=== PATIENT | female | born 1985 | race Caucasian/White ===

== ENCOUNTER 2018-09-10 16:33 | Emergency (ER) | payer BC ==
[2018-09-10 17:39] VITALS: BMI 24.7
[2018-09-10 17:42] VITALS: RESP 18
--- NOTE | 2018-09-10 18:19 | ED PDOC ---
Arrival/HPI - General Chief Complaint: Fever Time Seen by Provider: 09/10/18 16:42 Historian: Patient - History of Present Illness Narrative History of Present Illness (Text): 09/10/18 18:19 33 yo F w/ PMH of PE on xarelto c/o cough and fever x 5 days. Patient states that she has seen her pmd regarding the symptoms and was Rx cough medication and amoxicillin 875 mg BID x 7 days, she has taken it for the past 5 days so far. Patient admits to sick contacts - her son had pneumonia. Denies any SOB, CP, palpitations, headache, dizziness, N/V/D, rash, recent travel, smoking. PMD Vazquez Past Medical History - Infectious Disease Hx of Infectious Diseases: None - Cardiac Hx Cardiac Disorders: No - Pulmonary Hx Pulmonary Embolism: Yes - Neurological Hx Neurological Disorder: No - HEENT Hx HEENT Disorder: No - Renal Hx Renal Disorder: No - Endocrine/Metabolic Hx Endocrine Disorders: No - Hematological/Oncological Hx Blood Disorders: No - Integumentary Hx Dermatological Disorder: No - Musculoskeletal/Rheumatological Hx Musculoskeletal Disorders: No Hx Falls: No - Gastrointestinal Hx Gastrointestinal Disorders: No - Genitourinary/Gynecological Hx Genitourinary Disorders: No - Psychiatric Hx Psychophysiologic Disorder: No Hx Substance Use: No - Surgical History Hx Section: Yes (x1) - Anesthesia Hx Anesthesia: Yes Hx Anesthesia Reactions: No Hx Malignant Hyperthermia: No - Suicidal Assessment Feels Threatened In Home Enviroment: No Family/Social History Family/Social History: No Known Family HX Smoking Status: Never Smoked Hx Alcohol Use: Yes (occasional) Hx Substance Use: No Hx Substance Use Treatment: No Allergies/Home Meds Allergies/Adverse Reactions: Allergies No Known Allergies Allergy (Verified 04/22/12 09:03) Home Medications: Home Meds Medication Instructions Recorded Confirmed Rivaroxaban [Xarelto] 20 mg PO DAILY 09/10/18 09/10/18 Review of Systems - Review of Systems Constitutional: Fevers. absent: Fatigue Respiratory: Cough. absent: SOB, Sputum, Wheezing Cardiovascular: absent: Chest Pain, Palpitations Gastrointestinal: absent: Abdominal Pain, Diarrhea, Vomiting Musculoskeletal: absent: Arthralgias, Back Pain, Neck Pain Skin: absent: Rash, Pruritis, Skin Lesions Neurological: absent: Headache, Dizziness Physical Exam Vital Signs Temp Pulse Resp BP Pulse Ox 09/10/18 18:10 100.6 F H 09/10/18 17:42 100.6 F H 98 H 18 116/77 99 Temperature: Febrile Blood Pressure: Normal Pulse: Regular Respiratory Rate: Normal Appearance: Positive for: Well-Appearing, Non-Toxic, Comfortable Pain Distress: None Mental Status: Positive for: Alert and Oriented X 3 - Systems Exam Head: Present: Atraumatic, Normocephalic Pupils: Present: PERRL Extroacular Muscles: Present: EOMI Conjunctiva: Present: Normal Mouth: Present: Moist Mucous Membranes Pharnyx: Present: Normal. No: ERYTHEMA, EXUDATE Neck: Present: Normal Range of Motion. No: Meningeal Signs, Lymphadenopathy Respiratory/Chest: Present: Clear to Auscultation, Good Air Exchange. No: Respiratory Distress, Accessory Muscle Use Cardiovascular: Present: Regular Rate and Rhythm, Normal S1, S2. No: Murmurs Abdomen: No: Tenderness, Distention, Peritoneal Signs Back: Present: Normal Inspection Upper Extremity: Present: Normal Inspection. No: Cyanosis, Edema Lower Extremity: Present: Normal Inspection. No: Edema Neurological: Present: GCS=15, CN II-XII Intact, Speech Normal Skin: Present: Warm, Dry, Normal Color. No: Rashes Psychiatric: Present: Alert, Oriented x 3, Normal Insight, Normal Concentration Medical Decision Making ED Course and Treatment: 09/10/18 18:15 Plan : - CXR - Flu - Tylenol PO CXR : NAD, as read by ADRIANNA Flu : (-) On reevaluation, patient denies any CP or SOB. On exam, patient remains awake alert and oriented 3 in no acute distress, breathing easy and unlabored. Diagnostic results d/w the patient. Advised to follow up with primary care physician in 1-2 days without fail. Advised to continue current medication. Return to the emergency room at any time for any new or worsening symptoms. Patient states she fully agrees with and understands discharge instructions. States that she agrees with the plan and disposition. Verbalized and repeated discharge instructions and plan. I have given the patient opportunity to ask any additional questions. - RAD Interpretation Radiology Orders: 09/10/18 17:56 CHEST TWO VIEWS (PA/LAT) [RAD] Stat - Medication Orders Current Medication Orders: Discontinued Medications Acetaminophen (Tylenol 325mg Tab) 975 mg PO STAT STA Stop: 09/10/18 17:57 Last Admin: 09/10/18 18:10 Dose: 975 mg MAR Pain/Vitals Document 09/10/18 18:10 GMD (Rec: 09/10/18 18:10 GMD [id number]) Vitals Temperature (97.6 F-99.6 F) 100.6 F Temperature Source Oral - PA / ROAD REPAIRER / Resident Statement MD/DO has reviewed & agrees with the documentation as recorded. Disposition/Present on Arrival - Present on Arrival Any Indicators Present on Arrival: Yes History of DVT/PE: Yes History of Uncontrolled Diabetes: No Urinary Catheter: No History of Decub. Ulcer: No History Surgical Site Infection Following: None - Disposition Have Diagnosis and Disposition been Completed?: Yes Diagnosis: Cough, Fever Disposition: HOME/ ROUTINE Disposition Time: 19:00 Patient Plan: Discharge Condition: STABLE Discharge Instructions (ExitCare): Acute Bronchitis, Adult (DC), Cough, Adult ( DC), Fever, Adult (DC) Additional Instructions: Thank you for letting us take care of you today. You were treated for fever, cough, likely bronchitis. The emergency medical care you received today was directed at your acute symptoms. Continue taking current medications. It may take several days for your symptoms to resolve. Return to the Emergency Department if your symptoms worsen, do not improve, or if you have any other problems. Please contact your doctor in 2 days for re-evaluation and follow up. Bring any paperwork you were given at discharge with you along with any medications you are taking to your follow up visit. Our treatment cannot replace ongoing medical care by a primary care provider (PCP) outside of the emergency department. Thank you for allowing the [facility] team to be part of your care today. If you had an X-Ray : A Radiologist will review the ED reading if any change in treatment is needed we will contact you. Forms: [employer] (Tunisian), WORK NOTE
[2018-09-10 19:26] VITALS: BP 118/76; PULSE 81; TEMP 99.3; O2SAT 97
--- NOTE | 2018-09-11 08:34 | RAD ---
HISTORY: cough COMPARISON: Chest x-ray performed 08/27/17 TECHNIQUE: Chest PA and lateral FINDINGS: LUNGS: No focal consolidation. Please note that chest x-ray has limited sensitivity for the detection of pulmonary masses. PLEURA: No significant pleural effusion identified. No definite pneumothorax . CARDIOVASCULAR: The cardiomediastinal silhouette appears within normal limits of size. No atherosclerotic calcification present. OSSEOUS STRUCTURES: No acute osseous abnormality identified. VISUALIZED UPPER ABDOMEN: Unremarkable. OTHER FINDINGS: None. IMPRESSION: No acute findings.
== END 2018-09-10 19:28 | disposition home or self-care (01) ==
LOC: ED 16:33
DX: R50.9 Fever, unspecified (principal); R05 Cough

== ENCOUNTER 2018-11-20 12:44 | Emergency (ER) | payer BC, OTHER ==
[2018-11-20 12:50] VITALS: BMI 24.4
--- NOTE | 2018-11-20 13:15 | ED PDOC ---
Arrival/HPI - General Chief Complaint: Chest Pain Time Seen by Provider: 11/20/18 12:58 Historian: Patient - History of Present Illness Narrative History of Present Illness (Text): 11/20/18 13:15 A 33 year old female with no signifcant past medical history presents to the emergency department complaining of chest pain for the past 3 days. Patient reports experiencing associated shortness of breath, dry cough, and headache. Iggy rea she called Dr. Mercedes because her heart rate was abnormal to which she was urged to go to the emergency room. Patient notes she was told by her doctor to stop taking Xarelto because her ultrasound and CT images were negative. Patient reports to having sick contact with her children at home. Patient notes no recent travel. Patient denies any fever, chills, dizziness, or any other complaints. PMD: Dr. Merceeds Time/Duration: Other (3 days) Symptom Onset: Gradual Symptom Course: Unchanged Activities at Onset: Light Context: Home Past Medical History - Provider Review Nursing Documentation Reviewed: Yes - Infectious Disease Hx of Infectious Diseases: None - Cardiac Hx Cardiac Disorders: No - Pulmonary Hx Pulmonary Embolism: Yes - Neurological Hx Neurological Disorder: No - HEENT Hx HEENT Disorder: No - Renal Hx Renal Disorder: No - Endocrine/Metabolic Hx Endocrine Disorders: No - Hematological/Oncological Hx Blood Disorders: No - Integumentary Hx Dermatological Disorder: No - Musculoskeletal/Rheumatological Hx Musculoskeletal Disorders: No Hx Falls: No - Gastrointestinal Hx Gastrointestinal Disorders: No - Genitourinary/Gynecological Hx Genitourinary Disorders: No - Psychiatric Hx Psychophysiologic Disorder: No Hx Substance Use: No - Surgical History Hx Section: Yes (x1) - Anesthesia Hx Anesthesia: Yes Hx Anesthesia Reactions: No Hx Malignant Hyperthermia: No - Suicidal Assessment Feels Threatened In Home Enviroment: No Family/Social History - Physician Review Nursing Documentation Reviewed: Yes Family/Social History: No Known Family HX Smoking Status: Never Smoked Hx Alcohol Use: Yes (occasional) Hx Substance Use: No Hx Substance Use Treatment: No Allergies/Home Meds Allergies/Adverse Reactions: Allergies No Known Allergies Allergy (Verified 04/22/12 09:03) Home Medications: Home Meds Medication Instructions Recorded Confirmed Aspirin [Ecotrin] 81 mg PO DAILY 11/20/18 11/20/18 Review of Systems - Physician Review All systems were reviewed & negative as marked: Yes - Review of Systems Constitutional: absent: Fevers, Other (chills) Respiratory: SOB, Cough Neurological: absent: Headache, Dizziness Physical Exam Vital Signs Reviewed: Yes Vital Signs Temp Pulse Resp BP Pulse Ox 11/20/18 13:02 98.1 F 86 18 109/68 100 Temperature: Afebrile Blood Pressure: Normal Pulse: Regular Respiratory Rate: Normal Appearance: Positive for: Well-Appearing, Non-Toxic Mental Status: Positive for: Alert and Oriented X 3 - Systems Exam Head: Present: Atraumatic, Normocephalic Pupils: Present: PERRL Extroacular Muscles: Present: EOMI Conjunctiva: Present: Normal Respiratory/Chest: Present: Clear to Auscultation, Good Air Exchange. No: Res piratory Distress, Accessory Muscle Use Cardiovascular: Present: Regular Rate and Rhythm, Normal S1, S2. No: Murmurs Abdomen: No: Tenderness, Distention, Peritoneal Signs Back: Present: Normal Inspection Upper Extremity: Present: Normal Inspection. No: Cyanosis, Edema Lower Extremity: Present: Normal Inspection. No: Edema Neurological: Present: GCS=15, CN II-XII Intact, Speech Normal Skin: Present: Warm, Dry, Normal Color. No: Rashes Psychiatric: Present: Alert, Oriented x 3, Normal Insight, Normal Concentration Medical Decision Making ED Course and Treatment: 11/20/18 13:17 Impression: 33 year old female presents to the emergency department complaining of chest pain Plan: -- EKG -- Labs -- CBC -- Urinalysis -- Reassess and disposition Prior Visits: Notes and results from previous visits were reviewed. Patient was last seen on 09/10/18 for a fever and was discharged when the patient's symptoms improved. Progress Notes: 11/20/18 15:[address] Yepez who states patient is stable to be discharged and will follow up with him in his office. 11/20/18 15:22 Procedure: Chest CT Dictator: Mulu Barnhart Impression: Suboptimal study. No evidence of central pulmonary embolus. Questionable lesion in the spleen. If clinically warranted further assessment by ultrasound may be obtained. No evidence of acute pulmonary disease. - Scribe Statement The provider has reviewed the documentation as recorded by the Scribe Karly Vivar All medical record entries made by the Scribe were at my direction and personally dictated by me. I have reviewed the chart and agree that the record accurately reflects my personal performance of the history, physical exam, medical decision making, and the department course for this patient. I have also personally directed, reviewed, and agree with the discharge instructions and disposition. Disposition/Present on Arrival - Present on Arrival Any Indicators Present on Arrival: No History of DVT/PE: Yes History of Uncontrolled Diabetes: No Urinary Catheter: No History of Decub. Ulcer: No History Surgical Site Infection Following: None - Disposition Have Diagnosis and Disposition been Completed?: Yes Diagnosis: Chest pain Disposition: HOME/ ROUTINE Disposition Time: 15:43 Patient Plan: Discharge Condition: GOOD Discharge Instructions (ExitCare): Chest Pain (DC), Chest Pain (ED) Additional Instructions: Follow up with Dr Yepez in a few days for your chest pain and the spleen lesion. Take tylenol or advil for pain. Forms: [employer] (Maltese)
[2018-11-20 13:45] LABS: ALB/GLOB RATIO 1.4 (1.1-1.8); ALBUMIN 4.2 g/dL (3.0-4.8); ALT/SGPT 26 U/L (7-56); AST/SGOT 20 U/L (14-36); BLOOD UREA NITROGEN 14 mg/dL (7-21); GFR NON-AFRICAN AMERICAN > 60
[2018-11-20 13:48] LABS: URINE BILIRUBIN NEGATIVE (NEGATIVE); URINE BLOOD NEGATIVE (NEGATIVE); URINE GLUCOSE (UA) NEGATIVE (NEGATIVE); URINE LEUKOCYTE ESTERASE NEGATIVE Leu/uL (NEGATIVE); URINE PROTEIN NEGATIVE mg/dL (<30 mg/dL); URINE UROBILINOGEN 0.2 E.U./dL (<1 E.U./dL)
[2018-11-20 13:49] LABS: BASO # 0.01 K/mm3 (0.0-2.0); BASO % 0.3 % (0.0-3.0); EOS # 0.1 (0.0-0.7); EOS % 1.6 % (1.5-5.0); HEMOGLOBIN 12.5 g/dL (12.0-16.0); LYMPH # 1.5 (1.2-3.4); LYMPH % 39.3 % (22.0-35.0); MEAN CELL VOLUME 90.8 fl (80.0-105.0); MEAN CORPUSCULAR HEMOGLOBIN 30.3 pg (25.0-35.0); MEAN CORPUSCULAR HGB CONC 33.3 g/dl (31.0-37.0); MEAN PLATELET VOLUME 9.4 fl (7.0-11.0); MONO # 0.3 (0.1-0.6); RBC 4.13 10^6/uL (3.5-6.1); RED CELL DISTRIBUTION WIDTH 13.5 % (11.5-14.5); WHITE BLOOD COUNT 3.8 10^3/uL (4.5-11.0)
[2018-11-20 13:56] LABS: TROPONIN I < 0.01 ng/mL; URINE COLOR LIGHT YELLOW (YELLOW)
[2018-11-20 13:57] LABS: URINE APPEARANCE CLEAR (CLEAR)
[2018-11-20] MEDS ORDERED: Iohexol 350 MG/100 ML VIAL ONE (14:12)
--- NOTE | 2018-11-20 15:02 | CT ---
Date of service: 11/20/2018 PROCEDURE: CT Chest with contrast (Pulmonary Angiogram) HISTORY: shortness of breath, hist of PE COMPARISON: Comparison is made with 10/20/2018 TECHNIQUE: Axial computed tomography images were obtained of the chest in the pulmonary arterial phase of enhancement. Coronal and sagittal reformatted images were created and reviewed. Intravenous contrast dose: 100 mL of Omnipaque 350 intravenously. Radiation dose: Total exam DLP = 221.48 mGy-cm. This CT exam was performed using one or more of the following dose reduction techniques: Automated exposure control, adjustment of the mA and/or kV according to patient size, and/or use of iterative reconstruction technique. FINDINGS: PULMONARY ARTERIES: Suboptimal study with poor opacification of the peripheral and segmental pulmonary arteries. No evidence of central pulmonary embolus. The main pulmonary artery is normal in caliber. AORTA: No acute findings. No thoracic aortic aneurysm. No aortic atherosclerotic calcification or mural plaque present. LUNGS: Unremarkable. No nodule, mass or pulmonary consolidation. PLEURAL SPACES: Unremarkable. No effusion or pneumothorax. HEART: Unremarkable. No cardiomegaly. No significant pericardial effusion. LYMPH NODES: No lymphadenopathy. BONES, CHEST WALL: Unremarkable. No fracture or destructive lesion OTHER FINDINGS: There is suspicious for low-attenuation lesion in the spleen versus delayed enhancement in venous valenzuela. If clinically warranted further assessment by ultrasound may be obtained. IMPRESSION: Suboptimal study. No evidence of central pulmonary embolus. Questionable lesion in the spleen. If clinically warranted further assessment by ultrasound may be obtained. No evidence of acute pulmonary disease.
[2018-11-20 15:37] VITALS: BP 125/91; PULSE 87; RESP 16; TEMP 98; O2SAT 95
--- NOTE | 2018-11-21 21:34 | CARD ---
APPROVED REPORT Date of service: 11/20/2018 EKG Measurement Heart [id number] <Conclusion> Normal sinus rhythm Normal Electrocardiogram
== END 2018-11-20 15:43 | disposition home or self-care (01) ==
LOC: ED 12:44
DX: R07.9 Chest pain, unspecified (principal)
CPT/HCPCS: 71275; 80053; 81003; 81025; 82550; 83615; 83735; 84484; 84703; 85025; 93005; 99283; Q9967

== ENCOUNTER 2018-11-27 08:22 | Outpatient (CLI) | payer OTHER | END 2018-11-27 08:23 | disposition home or self-care (01) | LOC: RAD 08:22 | DX: D73.9 Disease of spleen, unspecified (principal) ==

== ENCOUNTER 2019-03-01 19:25 | Emergency (ER) | payer OTHER ==
[2019-03-01 19:26] VITALS: BMI 24.4
[2019-03-01 19:43] VITALS: TEMP 98.7
[2019-03-01] MEDS ORDERED: Sodium Chloride 0.9% 1,000 ML IV STA (19:56)
--- NOTE | 2019-03-01 20:07 | ED PDOC ---
Arrival/HPI - General Chief Complaint: Back Pain Time Seen by Provider: 03/01/19 19:32 Historian: Patient - History of Present Illness Narrative History of Present Illness (Text): 03/01/19 20:04 33-year-old female with no significant past medical history, presents complaining of dysuria since yesterday associated with fever, nausea and left flank pain which started today. Patient states that she saw her PMD yesterday and was diagnosed with a UTI, was given prescription for antibiotics, Macrobid which she started taking today. However with the fever and the flank pain she spoke to her doctor and was advised to come to the emergency room for further evaluation and to rule out possible kidney infection. Otherwise she reports no chills, vomiting, diarrhea, hematuria, history of kidney stones. Patient has no other complaints. PMD Vazquez Past Medical History - Provider Review Primary Care Provider: Kalyn Conrad - Infectious Disease Hx of Infectious Diseases: None - Cardiac Hx Cardiac Disorders: No - Pulmonary Hx Pulmonary Embolism: Yes - Neurological Hx Neurological Disorder: No - HEENT Hx HEENT Disorder: No - Renal Hx Renal Disorder: No - Endocrine/Metabolic Hx Endocrine Disorders: No - Hematological/Oncological Hx Blood Disorders: No - Integumentary Hx Dermatological Disorder: No - Musculoskeletal/Rheumatological Hx Musculoskeletal Disorders: No Hx Falls: No - Gastrointestinal Hx Gastrointestinal Disorders: No - Genitourinary/Gynecological Hx Genitourinary Disorders: No - Psychiatric Hx Psychophysiologic Disorder: No Hx Substance Use: No - Surgical History Hx Section: Yes (x1) - Anesthesia Hx Anesthesia: Yes Hx Anesthesia Reactions: No Hx Malignant Hyperthermia: No - Suicidal Assessment Feels Threatened In Home Enviroment: No Family/Social History Family/Social History: No Known Family HX Smoking Status: Never Smoked Hx Alcohol Use: Yes (occasional) Hx Substance Use: No Hx Substance Use Treatment: No Allergies/Home Meds Allergies/Adverse Reactions: Allergies No Known Allergies Allergy (Verified 03/01/19 19:48) Home Medications: Home Meds Medication Instructions Recorded Confirmed Aspirin [Ecotrin] 81 mg PO DAILY 11/20/18 03/01/19 Review of Systems - Review of Systems Constitutional: Fevers. absent: Fatigue Respiratory: absent: SOB, Cough Cardiovascular: absent: Chest Pain, Palpitations Gastrointestinal: Nausea. absent: Abdominal Pain, Diarrhea, Vomiting Genitourinary Female: Dysuria. absent: Frequency, Hematuria Musculoskeletal: Other (+L flank pain). absent: Arthralgias, Back Pain, Neck Pain Skin: absent: Rash, Pruritis, Skin Lesions Neurological: absent: Headache, Dizziness Physical Exam Vital Signs Temp Pulse Resp BP Pulse Ox 03/01/19 19:42 98.7 F 96 H 18 90/60 L 98 Temperature: Afebrile Blood Pressure: Normal Pulse: Regular Respiratory Rate: Normal Appearance: Positive for: Well-Appearing, Non-Toxic, Comfortable Pain Distress: None Mental Status: Positive for: Alert and Oriented X 3 - Systems Exam Head: Present: Atraumatic, Normocephalic Pupils: Present: PERRL Extroacular Muscles: Present: EOMI Conjunctiva: Present: Normal Mouth: Present: Moist Mucous Membranes Neck: Present: Normal Range of Motion Respiratory/Chest: Present: Clear to Auscultation, Good Air Exchange. No: Respiratory Distress, Accessory Muscle Use Cardiovascular: Present: Regular Rate and Rhythm, Normal S1, S2. No: Murmurs Abdomen: No: Tenderness, Distention, Peritoneal Signs Back: Present: Normal Inspection. No: CVA Tenderness Upper Extremity: Present: Normal Inspection. No: Cyanosis, Edema Lower Extremity: Present: Normal Inspection. No: Edema Neurological: Present: GCS=15, CN II-XII Intact, Speech Normal Skin: Present: Warm, Dry, Normal Color. No: Rashes Psychiatric: Present: Alert, Oriented x 3, Normal Insight, Normal Concentration Medical Decision Making ED Course and Treatment: 03/01/19 20:07 Plan : - IV - Labs - UA, urine cx - Zofran / Toradol - Reassess / disposition - US renal 03/01/19 22:54 Labs reviewed: wbc 6.8, UA+UTI, rest of the labs, wnl. On reevaluation, patient reports improvement of symptoms, denies any pain or nausea. On exam, patient remains awake alert and oriented 3 in no acute distress. Diagnostic results discussed with the patient in great detail. Rocephin 1 g IV ordered for UTI. Case d/w Dr. Shukla, agrees with plan for outpatient follow up. Advised to follow up with primary care physician in 1-2 days without fail. Advised to continue current antibiotic. Return to the emergency room at any time for any new or worsening symptoms. Patient states she fully agrees with and understands discharge instructions. States that she agrees with the plan and disposition. Verbalized and repeated discharge instructions and plan. I have given the patient opportunity to ask any additional questions. - RAD Interpretation Narrative RAD Interpretations (Text): Renal US: RIGHT KIDNEY: Unremarkable. Normal in size and contour measuring 10.8 x 4.4 x 5.5 cm in longitudinal, AP and transverse dimensions respectively. No renal mass or calculus. No hydronephrosis. LEFT KIDNEY: Unremarkable. Normal in size and contour measuring 9.4 x 4.8 x 5.1 cm in longitudinal, AP and transverse dimensions respectively. No renal mass or calculus. No hydronephrosis. BLADDER: The urinary bladder was not evaluated. MISCELLANEOUS: No other significant abnormality evident. IMPRESSION: No acute abnormality evident. No hydronephrosis. Electronically signed on March 01, 2019 8:56:58 PM EDT by: Edward Fu M.D., M.B.A., Certified By [employer] Fellowship Trained MRI and CT Specialist Radiology Orders: 03/01/19 20:00 RENAL [US] Stat [employer]: Radiologist - Medication Orders Current Medication Orders: Sodium Chloride (Sodium Chloride 0.9%) 1,000 mls @ 1,000 mls/hr IV .Q1H STA Stop: 03/01/19 20:55 Ketorolac Tromethamine (Toradol) 30 mg IVP STAT STA Stop: 03/01/19 19:57 Ondansetron HCl (Zofran Inj) 4 mg IVP STAT STA Stop: 03/01/19 19:57 - PA / GIG TENDER / Resident Statement MD/DO has reviewed & agrees with the documentation as recorded. Disposition/Present on Arrival - Present on Arrival Any Indicators Present on Arrival: Yes History of DVT/PE: Yes History of Uncontrolled Diabetes: No Urinary Catheter: No History of Decub. Ulcer: No History Surgical Site Infection Following: None - Disposition Have Diagnosis and Disposition been Completed?: Yes Diagnosis: UTI (urinary tract infection), Fever Disposition: HOME/ ROUTINE Disposition Time: 23:00 Patient Plan: Discharge Patient Problems: Current Active Problems Problem Status Onset Fever Acute UTI (urinary tract infection) Acute Condition: STABLE Discharge Instructions (ExitCare): Urinary Tract Infections in Adults, Fever, Adult (DC) Additional Instructions: Thank you for letting us take care of you today. You were treated for UTI, fever. The emergency medical care you received today was directed at your acute symptoms. Continue taking current antibiotics. It may take several days for your symptoms to resolve. Return to the Emergency Department if your symptoms worsen, do not improve, or if you have any other problems. Please contact your doctor in 2 days for re-evaluation and follow up. Bring any paperwork you were given at discharge with you along with any medications you are taking to your follow up visit. Our treatment cannot replace ongoing medical care by a primary care provider (PCP) outside of the emergency department. Thank you for allowing the [facility] team to be part of your care today. If you had a urine culture: It will take several days for the results, if any change in treatment is needed we will contact you. Forms: [id number] (Moroccan), WORK NOTE
[2019-03-01 21:29] LABS: ALB/GLOB RATIO 1.3 (1.1-1.8); ALBUMIN 3.9 g/dL (3.0-4.8); BLOOD UREA NITROGEN 13 mg/dL (7-21); CALCIUM 8.9 mg/dL (8.4-10.5); GFR NON-AFRICAN AMERICAN > 60; LIPASE 58 U/L (23-300)
[2019-03-01 21:31] LABS: ALT/SGPT 29 U/L (7-56); AST/SGOT 40 U/L (14-36)
[2019-03-01 21:42] LABS: URINE BILIRUBIN NEGATIVE (NEGATIVE); URINE BLOOD TRACE-LYSED (NEGATIVE); URINE GLUCOSE (UA) NEGATIVE (NEGATIVE); URINE LEUKOCYTE ESTERASE MODERATE Leu/uL (NEGATIVE); URINE PROTEIN NEGATIVE mg/dL (<30 mg/dL); URINE UROBILINOGEN 0.2 E.U./dL (<1 E.U./dL)
[2019-03-01 21:43] LABS: HEMOGLOBIN 12.1 g/dL (12.0-16.0); LYMPH % 14.5 % (22.0-35.0); MEAN CELL VOLUME 89.9 fl (80.0-105.0); MEAN CORPUSCULAR HEMOGLOBIN 30.6 pg (25.0-35.0); MEAN PLATELET VOLUME 9.8 fl (7.0-11.0); MONO # 0.6 (0.1-0.6); MONO % 8.4 % (1.0-6.0); RBC 3.96 10^6/uL (3.5-6.1); RED CELL DISTRIBUTION WIDTH 13.2 % (11.5-14.5); WHITE BLOOD COUNT 6.8 10^3/uL (4.5-11.0)
[2019-03-01 21:45] LABS: URINE APPEARANCE CLEAR (CLEAR)
[2019-03-01 21:49] LABS: URINE EPITHELIAL CELLS MANY /hpf (0-5)
[2019-03-01] MEDS ORDERED: cefTRIAXone 1 gm 1 GM/100 ML BAG IVPB STA (21:53)
[2019-03-01 23:06] VITALS: BP 100/60; PULSE 86; RESP 16; O2SAT 100
--- NOTE | 2019-03-02 09:03 | US ---
Date of service: 03/01/2019 PROCEDURE: Ultrasound of the Kidneys HISTORY: L flank pain COMPARISON: Complete abdomen ultrasound 11/27/2018.. TECHNIQUE: Sonogram of the kidneys. FINDINGS: RIGHT KIDNEY: Measures: 10.8 x 4.4 x 5.5 cm. Normal in size, contour and echogenicity. No stone, solid mass lesion or hydronephrosis visualized. LEFT KIDNEY: Measures: 9.4 x 4.8 x 5.1 cm. Normal in size, contour and echogenicity. No stone, solid mass lesion or hydronephrosis visualized. OTHER FINDINGS: None. IMPRESSION: Unremarkable renal sonogram. Stable, unremarkable appearance of bilateral kidneys compared prior abdomen ultrasound 11/27/2018.
== END 2019-03-01 23:05 | disposition home or self-care (01) ==
LOC: ED 19:25
DX: N39.0 Urinary tract infection, site not specified (principal); R50.9 Fever, unspecified; Z86.711 Personal history of pulmonary embolism; Z86.718 Personal history of other venous thrombosis and embolism
CPT/HCPCS: 76770; 80053; 81001; 81025; 83690; 83735; 85025; 87040; 87086; 96361; 96365; 96375; 99284; J0696; J1885; J2405; J7030